=== PATIENT | male | born 1970 | race Caucasian/White ===

== ENCOUNTER 2025-04-27 16:20 | Emergency (ER) | payer BC, SELFPAY ==
[2025-04-27] MEDS ORDERED: HYDROcodone/Acetaminophen 5/325 mg Tablet ONE (16:50)
== END 2025-04-27 22:00 | disposition home or self-care (01) ==
LOC: ERS 16:20
DX: S09.90XA Unspecified injury of head, initial encounter (principal); S29.011A Strain of muscle and tendon of front wall of thorax, initial encounter; M54.50 Low back pain, unspecified; E11.9 Type 2 diabetes mellitus without complications; V69.59XA Passenger in heavy transport vehicle injured in collision with other motor vehicles in traffic accident, initial encounter; Y92.410 Unspecified street and highway as the place of occurrence of the external cause
CPT/HCPCS: 70450; 71045; 72125; 72128; 72131